=== PATIENT | male | born 1975 | race Two or more races ===

== ENCOUNTER → 2018-08-26 15:14 | Emergency (ER) | payer SELFPAY ==
[2018-08-26 15:57] VITALS: BP 0/0
--- NOTE | 2018-08-27 08:49 | ED ---
Psychiatric Complaint - HPI Summary HPI Summary: Patient is a 43-year-old male brought in by police for stating suicidal ideations while at court just [employer]. On arrival, he appears well, however non- cooperative and stating he has no intentions of suicide or homicide. Denies these and states he stated this once out of anger upon hearing a stressful comment. Denies hx of SI/HI. Denies hx of depression/anxiety. He states he feels happy, with much to look forward to and denies ever feeling these symptoms in the past. He states he stated this comment out of anger and does not feel this way. While uncooperative for police, he remains cooperative for provider on arrival. - History Of Current Complaint Chief Complaint: [facility]entalHealth Time Seen by Provider: 08/26/18 15:29 Hx Obtained From: Patient Onset/Duration: Sudden Onset Timing: Constant Severity Initially: Moderate Severity Currently: Moderate Aggravating Factor(s): Nothing Alleviating Factor(s): Nothing Associated Signs And Symptoms: Positive: Negative - Risk Factor(s) Completed Suicide Risk Factors: Negative - Allergies/Home Medications Allergies/Adverse Reactions: Allergies Allergy/AdvReac Type Severity Reaction Status Date / Time No Known Allergies Allergy Verified 12/30/14 19:42 PMH/Surg Hx/FS Hx/Imm Hx Previously Healthy: Yes - Immunization History Hx Pertussis Vaccination: No Immunizations Up to Date: Yes Infectious Disease History: No Infectious Disease History: Denies: Traveled Outside the [place] in Last 30 Days - Social History Occupation: Employed Full-time Lives: With Family Alcohol Use: Daily Alcohol Amount: 3 beers Hx Substance Use: No Substance Use Type: Reports: None Substance Use Comment - Amount & Last Used: OCCASIONAL Hx Tobacco Use: Yes Smoking Status (MU): Heavy Every Day Tobacco Smoker Type: Cigarettes Amount Used/How Often: 1/2 PPD Review of Systems Constitutional: Negative Negative: Fever, Chills Negative: Palpitations, Chest Pain Negative: Shortness Of Breath, Cough Negative: Arthralgia, Myalgia Negative: Rash, Bruising Negative: Headache, Weakness, Paresthesia Positive: Other - frusterated All Other Systems Reviewed And Are Negative: Yes Physical Exam Triage Information Reviewed: Yes Vital Signs On Initial Exam: Initial Vitals Temp Pulse Resp BP Pulse Ox 97.4 F 59 16 149/107 96 08/26/18 15:22 08/26/18 15:22 08/26/18 15:22 08/26/18 15:22 08/26/18 15:22 Vital Signs Reviewed: Yes Appearance: Positive: Well-Appearing, Well-Nourished Skin: Positive: Warm, Skin Color Reflects Adequate Perfusion Head/Face: Positive: Normal Head/Face Inspection Eyes: Positive: EOMI, Conjunctiva Clear Neck: Positive: Supple, No Lymphadenopathy Respiratory/Lung Sounds: Positive: Clear to Auscultation, Breath Sounds Present Cardiovascular: Positive: RRR, Pulses are Symmetrical in both Upper and Lower Extremities Musculoskeletal: Positive: Normal, Strength/ROM Intact Neurological: Positive: Speech Normal Psychiatric: Positive: Other - patient alert and cooperative - denies SI/HI AVPU Assessment: Alert Diagnostics - Vital Signs Vital Signs Temp Pulse Resp BP Pulse Ox 08/26/18 15:55 0 F 0 18 0/0 0 08/26/18 15:22 97.4 F 59 16 149/107 96 - Laboratory Lab Statement: Any lab studies that have been ordered have been reviewed, and results considered in the medical decision making process. Course/Dx - Course Course Of Treatment: Patient is evaluated for SI/HI. Denies these. Denies other symptoms. States he has never been suicidal. Does not take medications. Otherwise healthy. After evaluation, it was deemed patient is able to be discharged home in good condition with no SI. - Differential Dx/Clinical Impression Differential Diagnosis/HQI/PQRI: Positive: Suicidal Gesture Provider Diagnosis: Mood changes Discharge - Sign-Out/Discharge Documenting (check all that apply): Patient Departure Patient Received Moderate/Deep Sedation with Procedure: No - Discharge Plan Condition: Stable Disposition: HOME Referrals: No Primary Care Phys,NOPCP [Primary Care Provider] - - Billing Disposition and Condition Condition: STABLE Disposition: Home
== END | disposition home or self-care (01) ==
LOC: ED 15:14
DX: F39 Unspecified mood [affective] disorder (principal); F17.210 Nicotine dependence, cigarettes, uncomplicated
CPT/HCPCS: 99284